=== PATIENT | male | born 1985 | race African-American/Black ===

== ENCOUNTER 2016-11-06 18:25 | Emergency (ER) | payer OTHER ==
[~2016-11-06 18:25] MED LIST: FLEXERIL PO; HYDROCODONE 5MG PO; MOTRIN PO
== END 2016-11-06 18:51 | disposition home or self-care (01) ==
LOC: SED 18:25
DX: N45.1 Epididymitis (principal); Z79.899 Other long term (current) drug therapy
CPT/HCPCS: 96372; 99283; J0696